=== PATIENT | male | born 1970 | race African-American/Black ===

== ENCOUNTER 2019-07-11 23:58 | Emergency (ER) | payer OTHER ==
[~2019-07-11] VITALS: Ht 190.5 cm; Wt 112.5 kg
[2019-07-12 00:10] VITALS: BP 147/84
--- NOTE | 2019-07-12 00:10 | NUR ---
ED Nurse Note: Pt Walked into the ED from home c/o sharp chest pain. Patient reports history of HTN and on Metoprolol for 30 days. Patient states that shap chest pain started about 20 minutes ago while watching comedy movie. AOx4, denies SOB and denies chest pain at arrival; however, still discomfort rated at an 8/10.
--- NOTE | 2019-07-12 00:18 | NUR ---
ED Nurse Note: IV line established on Right AC 20G by EDRN. EKG is done at the bedside, Blood initial, toroponin, and D dimer collected and sent down to the lab.
--- NOTE | 2019-07-12 00:25 | NUR ---
Note trisatn in EDM - 07/12/19 at 0707 by [email or web address] ED Nurse Note: Droplet precausion was observed.
[2019-07-12 00:30] VITALS: BP 130/88
--- NOTE | 2019-07-12 00:33 | Emergency Room Report ---
History of Present Illness General Chief Complaint: Chest Pain Source: Patient Present Illness HPI Patient is a 48-year-old male presents after increased left-sided chest pain. Had recently been started on metoprolol. Previous history of hypertension. Denies any recent fever. Had reportedly had a negative coronavirus test recently. Denies any vomiting or diarrhea. Denies any abdominal pain. Pain was sharp in nature associated with some lightheadedness. Denies any prior cardiac condition or prior cardiac procedures. Intermittent episodes worse over the past 2 weeks worse with supine position. 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 COVID-19 Screening: Negative COVID-19 COVID-19 Testing Source: SAFETY ADMIN ASSISTANT Patient History Past Medical History: see triage record Reviewed Nursing Documentation: PMH: Agreed; PSxH: Agreed Nursing Documentation-PMH Hx Cardiac Problems: Yes - ultrasound Hx Hypertension: Yes Hx Gastrointestinal Problems: No - appendix removed Review of Systems All Other Systems: negative except mentioned in HPI Physical Exam Vital Signs Date Time Temp Pulse Resp B/P (MAP) Pulse Ox O2 Delivery O2 Flow Rate FiO2 07/12/19 00:00 98.1 70 17 93 Room Air Sp02 EP Interpretation: reviewed, normal General Appearance: normal inspection, well appearing, no apparent distress, alert, GCS 15 Head: atraumatic ENT: normal ENT inspection, hearing grossly normal, normal voice Neck: normal inspection, full range of motion, supple, no bony tend Respiratory: normal inspection, lungs clear, normal breath sounds, no respiratory distress, no retraction, no wheezing Cardiovascular #1: regular rate, rhythm, no edema Gastrointestinal: normal inspection, normal bowel sounds, non tender, soft, no guarding, no hernia Genitourinary: no CVA tenderness Musculoskeletal: normal inspection, back normal, normal range of motion Neurologic: alert, responsive, speech normal, normal inspection Psychiatric: normal inspection, judgement/insight normal, mood/affect normal Medical Decision Making Diagnostic Impression: Primary Impression: Chest pain Additional Impressions: Splenic calcification Lymphadenopathy, hilar ER Course Patient presented for chest pain. Differential diagnosis include was not limited to coronavirus infection, pneumonia, bronchitis, acute coronary syndrome among others. Because of complexity of patient's case laboratory tests and imaging studies were ordered. Chest x-ray 1 view interpreted by me showed normal cardiac size without any definite infiltrate with radiopaque foreign body present. Cardiac size is normal. There is normal mediastinum. Trachea is midline. EKG interpreted by me showed normal sinus rhythm with a rate of [address] or T wave changes. Repeat EKG did not show any evidence of acute changes.Patient was advised of CT findings. Patient was offered admission which he declined. He was advised to follow-up for further cardiac evaluation with his primary care physician. He was advised to return if worse. The patient is advised to follow up with primary care doctor in 1- 2 days. Patient is advised to return if any worsening condition or if any changes in status that are concerning. This report is dictated with [employer] c engineer software which may occasionally lead to discrepancies related to use of this software. Labs Test 07/12/19 00:18 07/12/19 01:23 White Blood Count 8.2 K/UL (4.8-10.8) Red Blood Count 4.75 M/UL (4.70-6.10) Hemoglobin 14.0 G/DL (14.2-18.0) Hematocrit 39.8 % (42.0-52.0) Mean Corpuscular Volume 84 FL (80-99) Mean Corpuscular Hemoglobin 29.4 PG (27.0-31.0) Mean Corpuscular Hemoglobin Concent 35.1 G/DL (32.0-36.0) Red Cell Distribution Width 12.3 % (11.6-14.8) Platelet Count 224 K/UL (150-450) Mean Platelet Volume 6.2 FL (6.5-10.1) Neutrophils (%) (Auto) 70.9 % (45.0-75.0) Lymphocytes (%) (Auto) 17.4 % (20.0-45.0) Monocytes (%) (Auto) 8.3 % (1.0-10.0) Eosinophils (%) (Auto) 1.8 % (0.0-3.0) Basophils (%) (Auto) 1.6 % (0.0-2.0) D-Dimer 0.72 mg/L FEU (0.00-0.49) Sodium Level 144 MMOL/L (136-145) Potassium Level 3.7 MMOL/L (3.5-5.1) Chloride Level 105 MMOL/L (98-107) Carbon Dioxide Level 30 MMOL/L (21-32) Anion Gap 9 mmol/L (5-15) Blood Urea Nitrogen 17 mg/dL (7-18) Creatinine 1.3 MG/DL (0.55-1.30) Estimat Glomerular Filtration Rate > 60 mL/min (>60) Glucose Level 104 MG/DL (74-106) Calcium Level 9.2 MG/DL (8.5-10.1) Total Bilirubin 0.3 MG/DL (0.2-1.0) Aspartate Amino Transf (AST/SGOT) 36 U/L (15-37) Alanine Aminotransferase (ALT/SGPT) 96 U/L (12-78) Alkaline Phosphatase 91 U/L (46-116) Total Creatine Kinase 365 U/L (26-308) Troponin I 0.004 ng/mL (0.000-0.056) Pro-B-Type Natriuretic Peptide 48 pg/mL (0-125) Total Protein 7.7 G/DL (6.4-8.2) Albumin 3.8 G/DL (3.4-5.0) Globulin 3.9 g/dL Albumin/Globulin Ratio 1.0 (1.0-2.7) Lipase 250 U/L (73-393) Urine Color Pale yellow Urine Appearance Clear Urine pH 6.5 (4.5-8.0) Urine Specific [place] 1.015 (1.005-1.035) Urine Protein Negative (NEGATIVE) Urine Glucose (UA) Negative (NEGATIVE) Urine Ketones Negative (NEGATIVE) Urine Blood Negative (NEGATIVE) Urine Nitrite Negative (NEGATIVE) Urine Bilirubin Negative (NEGATIVE) Urine Urobilinogen 1 MG/DL (0.0-1.0) Urine Leukocyte Esterase Negative (NEGATIVE) EKG Diagnostic Results Rate: normal Rhythm: NSR ST Segments: no acute changes Last Vital Signs Date Time Temp Pulse Resp B/P (MAP) Pulse Ox O2 Delivery O2 Flow Rate FiO2 07/12/19 00:00 98.1 70 17 93 Room Air Status: improved Disposition: PLACE IN OBSERVATION Condition: Stable Scripts Aspirin* (ASPIR 81*) 81 Mg Tablet. 81 MG ORAL DAILY, #60 TAB Prov: Paulino Rendon MD 07/12/19 Omeprazole Magnesium (PRILOSEC OTC) 20 Mg Tablet. 20 MG ORAL DAILY, #30 TAB Prov: Paulino Rendon MD 07/12/19 Paulino Rendon MD July 12, 2019 00:33
[2019-07-12 00:37] LABS: BASOPHILS % (AUTO) 1.6 % (0.0-2.0); EOSINOPHILS % (AUTO) 1.8 % (0.0-3.0); HEMATOCRIT 39.8 % (42.0-52.0); LYMPHOCYTES % (AUTO) 17.4 % (20.0-45.0); MEAN CORPUSCULAR VOLUME 84 FL (80-99); MONOCYTES % (AUTO) 8.3 % (1.0-10.0); NEUTROPHILS % (AUTO) 70.9 % (45.0-75.0); PLATELET COUNT 224 K/UL (150-450); RED BLOOD COUNT 4.75 M/UL (4.70-6.10); RED CELL DISTRIBUTION WIDTH 12.3 % (11.6-14.8); WHITE BLOOD COUNT 8.2 K/UL (4.8-10.8)
[2019-07-12 00:42] LABS: ANION GAP 9 mmol/L (5-15); BLOOD UREA NITROGEN 17 mg/dL (7-18); CALCIUM 9.2 MG/DL (8.5-10.1); CARBON DIOXIDE 30 MMOL/L (21-32); CHLORIDE 105 MMOL/L (98-107); CREATININE 1.3 MG/DL (0.55-1.30); POTASSIUM 3.7 MMOL/L (3.5-5.1); SODIUM 144 MMOL/L (136-145)
[2019-07-12 00:53] LABS: ALANINE AMINOTRANSFERASE 96 U/L (12-78); ALBUMIN 3.8 G/DL (3.4-5.0); ALKALINE PHOSPHATASE 91 U/L (46-116); ASPARTATE AMINO TRANSFERASE 36 U/L (15-37); BILIRUBIN,TOTAL 0.3 MG/DL (0.2-1.0); CREATINE KINASE 365 U/L (26-308)
[2019-07-12 01:00] VITALS: BP 135/99
--- NOTE | 2019-07-12 01:23 | NUR ---
ED Nurse Note: Urine sample sent down to lab.
[2019-07-12 01:30] LABS: APPEARANCE,URINE CLEAR; BILIRUBIN, URINE NEGATIVE (NEGATIVE); COLOR,URINE PALE YELLOW; GLUCOSE, URINE (UA) NEGATIVE (NEGATIVE); KETONES,URINE NEGATIVE (NEGATIVE); LEUKOCYTE ESTERASE ,URINE NEGATIVE (NEGATIVE); NITRITE,URINE NEGATIVE (NEGATIVE); PH,URINE 6.5 (4.5-8.0); PROTEIN,URINE NEGATIVE (NEGATIVE); UROBILINOGEN,URINE 1 MG/DL (0.0-1.0)
[2019-07-12] MEDS ORDERED: Omnipaque 350 100ml vial INJ PRN (01:45)
[2019-07-12 02:30] VITALS: BP 131/77
--- NOTE | 2019-07-12 03:57 | Diagnostic Imaging Report ---
EXAM: CT Angiography Chest With Intravenous Contrast CLINICAL HISTORY: CP TECHNIQUE: Axial computed tomographic angiography images of the chest with intravenous contrast using pulmonary embolism protocol. CTDI is 111 mGy and DLP is 407 mGy-cm. One or more of the following dose reduction techniques were used: automated exposure control, adjustment of the mA and/or kV according to patient size, use of iterative reconstruction technique. MIP reconstructed images were created and reviewed. Coronal and sagittal reformatted images were created and reviewed. COMPARISON: No relevant prior studies available. FINDINGS: Pulmonary arteries: No evidence of pulmonary embolism. Aorta: No evidence of thoracic aortic dissection. Lungs: Unremarkable. No mass. No consolidation. Pleural space: Unremarkable. No significant effusion. No pneumothorax. Heart: Unremarkable. No cardiomegaly. No significant pericardial effusion. No evidence of RV dysfunction. Bones/joints: There are degenerative changes of the lower thoracic spine. No acute fracture. No dislocation. Soft tissues: Multiple metallic density foreign bodies are seen in the right posterior paraspinous muscular soft tissue. Lymph nodes: There are calcified lymph nodes in the subcarinal region. Spleen: Multiple punctate splenic calcifications are present. Kidneys and ureters: Nonobstructing 2 mm right renal calculus. IMPRESSION: 1. No evidence of pulmonary embolism. No evidence of thoracic aortic dissection. No other acute chest pathology. 2. Nonobstructing 2 mm right renal calculus.
[2019-07-12 04:00] VITALS: BP 139/97
[2019-07-12] MEDS ORDERED: PRILOSEC OTC20 MG ORAL (04:35)
[2019-07-12] MEDS ORDERED: ASPIR 8181 MG ORAL (04:35)
[2019-07-12 04:40] VITALS: BP 139/97
--- NOTE | 2019-07-12 04:40 | NUR ---
ER DISCHARGE NOTE: Patient is cleared to be discharged per ERMD, pt is aox4, on room air, with stable vital signs. pt was given dc and prescription instructions, pt was able to verbalize understanding, pt id band and iv site removed without complications. pt is able to ambulate with steady gait. pt took all belongings.
--- NOTE | 2019-07-12 16:30 | Diagnostic Imaging Report ---
Procedure: XRAY Chest 1v Reason for study: Reason For Exam: SOB Comparison films: None. FINDINGS: Metallic shrapnel artifact noted over the right chest. Vascularity is normal. The lung vo are clear bilaterally. Cardiac and mediastinal silhouette are within normal limits. CP angles are sharp. The bony thorax appear unremarkable. IMPRESSION: No acute alveolar disease. Metallic shrapnel artifacts noted over the right chest.
== END 2019-07-12 04:40 | disposition home or self-care (01) ==
LOC: EMR 07-12 00:37
DX: R07.9 Chest pain, unspecified (principal); I10 Essential (primary) hypertension; Z90.89 Acquired absence of other organs
CPT/HCPCS: 36415; 71045; 71275; 80053; 81003; 82550; 83690; 83880; 84484; 85025; 85379; 93005; 99284; Q9967

== ENCOUNTER 2019-11-19 00:03 | Emergency (ER) | payer OTHER ==
[~2019-11-19] VITALS: Ht 190.5 cm; Wt 113.4 kg
[~2019-11-19 00:03] MED LIST: ASPIR 8181 MG ORAL; PRILOSEC OTC20 MG ORAL
[2019-11-19 00:10] VITALS: BP 144/93
--- NOTE | 2019-11-19 00:10 | NUR ---
ED Nurse Note: walked in to ed c/o left sided cp nonradiating onset 1999 last night. denies nvd or sob. vss, nad, aaox4, ambulatory, on desk monitor, ermd at bedside, ekg done at bedside
--- NOTE | 2019-11-19 00:15 | NUR ---
ED Nurse Note: blood collected and sent to lab
--- NOTE | 2019-11-19 00:42 | Emergency Room Report ---
History of Present Illness General Chief Complaint: Chest Pain Source: Patient, Medical Record Present Illness HPI Is a 49-year-old male with history hypertension. He presents with complaint of chest pain. Onset around 8 PM. He said he was driving and felt tightness in his left chest area. He said he became shaky. He talked with his neighbor who calmed him down. He did not take his blood pressure medication so he took it. He actually drove here and waited in the parking lot. He got better after he went home. He woke up with some cramping pain in the left chest area so he was concerned and drove here. He has no pain now. No palpitation. No fever chi lls. He has been having this problem for a while now. He had a negative stress test a month ago. He denies anxiety. No fever chills but no nausea no vomiting. No radiation. No exertional component. Lasting for a few seconds. 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 Patient History Past Medical History: see triage record, old chart reviewed, HTN Past Surgical History: none Pertinent Family History: none Social History: Denies: smoking Immunizations: other Reviewed Nursing Documentation: PMH: Agreed; PSxH: Agreed Nursing Documentation-PMH Hx Cardiac Problems: Yes Hx Hypertension: Yes Hx Gastrointestinal Problems: No - appendix removed Review of Systems Eye: Denies: eye pain, blurred vision ENT: Denies: ear pain, nose congestion, throat swelling Respiratory: Denies: cough, shortness of breath Cardiovascular: Reports: chest pain; Denies: palpitations Gastrointestinal: Denies: abdominal pain, diarrhea, nausea, vomiting Musculoskeletal: Denies: back pain, joint pain Skin: Denies: rash Neurological: Denies: headache, numbness Endocrine: Denies: increased thirst, increased urine Hematologic/Lymphatic: Denies: easy bruising All Other Systems: negative except mentioned in HPI Physical Exam Vital Signs Date Time Temp Pulse Resp B/P (MAP) Pulse Ox O2 Delivery O2 Flow Rate FiO2 11/19/19 00:08 97.7 61 20 146/96 (113) 99 Room Air Vitals with high blood pressure Sp02 EP Interpretation: reviewed, normal General Appearance: well appearing, no apparent distress, alert Head: normocephalic, atraumatic Eyes: bilateral eye PERRL, bilateral eye EOMI ENT: hearing grossly normal, normal pharynx Neck: full range of motion, supple, no meningismus Respiratory: chest non-tender, lungs clear, normal breath sounds Cardiovascular #1: regular rate, rhythm, no murmur Gastrointestinal: normal bowel sounds, non tender, no mass, no organomegaly, no bruit, non-distended Musculoskeletal: back normal, normal range of motion, gait/station normal Psychiatric: mood/affect normal Medical Decision Making Diagnostic Impression: Primary Impression: Chest pain Qualified Codes: R07.9 - Chest pain, unspecified ER Course Patient with atypical chest pain. May be more GI related with anxiety. Unlikely to be ACS for CAD. He had a negative stress test this a month ago. Troponin negative. EKG normal. Will discharge home with reassurance. EKG Diagnostic Results Rate: normal, bradycardiac Rhythm: NSR ST Segments: no acute changes Rhythm Strip Diag. Results EP Interpretation: yes Rate: 58 Rhythm: NSR, no PVC's, no ectopy Last Vital Signs Date Time Temp Pulse Resp B/P (MAP) Pulse Ox O2 Delivery O2 Flow Rate FiO2 11/19/19 00:08 97.7 61 20 146/96 (113) 99 Room Air Status: improved Disposition: HOME, SELF-CARE Condition: Stable Scripts Omeprazole (OMEPRAZOLE) 40 Mg Capsule. 40 MG ORAL TWICE A DAY, #30 CAP Prov: Jefe Del Castillo MD 11/19/19 Referrals: NON PHYSICIAN (PCP) Patient Instructions: Nonspecific Chest Pain Additional Instructions: Follow-up with your doctor in 7 days. If continue with pain, you may need referral to see client technical specialist. If cardiac origin has been ruled out, you may need a referral to see a GI doctor. Return if symptoms worsen. Jefe Del Castillo MD Nov 19, 2019 00:42
[2019-11-19] MEDS ORDERED: Pantoprazole Inj IVP ONE (00:45)
[2019-11-19 00:56] LABS: BASOPHILS % (AUTO) 2.6 % (0.0-2.0); EOSINOPHILS % (AUTO) 1.4 % (0.0-3.0); HEMATOCRIT 39.6 % (42.0-52.0); HEMOGLOBIN 13.7 G/DL (14.2-18.0); LYMPHOCYTES % (AUTO) 14.1 % (20.0-45.0); MEAN CORPUSCULAR VOLUME 84 FL (80-99); MONOCYTES % (AUTO) 9.2 % (1.0-10.0); NEUTROPHILS % (AUTO) 72.7 % (45.0-75.0); PLATELET COUNT 221 K/UL (150-450); RED BLOOD COUNT 4.69 M/UL (4.70-6.10); RED CELL DISTRIBUTION WIDTH 12.6 % (11.6-14.8); WHITE BLOOD COUNT 7.8 K/UL (4.8-10.8)
[2019-11-19 01:04] LABS: ANION GAP 9 mmol/L (5-15); BLOOD UREA NITROGEN 15 mg/dL (7-18); CALCIUM 9.1 MG/DL (8.5-10.1); CARBON DIOXIDE 29 MMOL/L (21-32); CHLORIDE 103 MMOL/L (98-107); CREATININE 1.1 MG/DL (0.55-1.30); POTASSIUM 3.9 MMOL/L (3.5-5.1); SODIUM 141 MMOL/L (136-145)
[2019-11-19] MEDS ORDERED: OMEPRAZOLE40 M1 ORAL (01:33)
[2019-11-19 01:40] VITALS: BP 135/88
--- NOTE | 2019-11-19 17:40 | Cardiology Report ---
APPROVED REPORT EKG Measurement Heart [id number] <Conclusion> Sinus bradycardia Otherwise normal ECG
== END 2019-11-19 01:40 | disposition home or self-care (01) ==
LOC: EMR 00:30
DX: R07.9 Chest pain, unspecified (principal); I10 Essential (primary) hypertension; Z90.89 Acquired absence of other organs; R00.1 Bradycardia, unspecified
CPT/HCPCS: 36415; 80048; 84484; 85025; 93005; 96374; 99284; C9113

== ENCOUNTER 2019-12-07 00:01 | Emergency (ER) | payer OTHER ==
[~2019-12-07] VITALS: Ht 190.5 cm; Wt 115.7 kg
[~2019-12-07 00:01] MED LIST changes: +OMEPRAZOLE40 M1 ORAL
[2019-12-07 00:20] VITALS: BP 147/87
--- NOTE | 2019-12-07 00:20 | NUR ---
ED Nurse Note: Pt ambulated into ed from home with son CO s/p low blood pressure and s/p low blood sugar with lightheadedness and dizziness. Pt states hx of HTN and denies PMH of diabetes. Pt aao x 4, ambulates with steady gait. Pt placed in gown and on quad stayer. Awaiting ERMD at bedside. Awaiting further orders.
--- NOTE | 2019-12-07 00:33 | NUR ---
ED Nurse Note: ERMD at bedside
--- NOTE | 2019-12-07 00:41 | NUR ---
ED Nurse Note: pt states he is unable to provide UA at this time. Pt states he may be able to provide sample at a later time. Will continue to monitor.
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
[2019-12-07 01:23] LABS: ANION GAP 5 mmol/L (5-15); BLOOD UREA NITROGEN 14 mg/dL (7-18); CALCIUM 8.8 MG/DL (8.5-10.1); CARBON DIOXIDE 29 MMOL/L (21-32); CHLORIDE 102 MMOL/L (98-107); CREATININE 1.3 MG/DL (0.55-1.30); POTASSIUM 3.5 MMOL/L (3.5-5.1); SODIUM 136 MMOL/L (136-145)
[2019-12-07 01:27] LABS: BASOPHILS % (AUTO) 2.6 % (0.0-2.0); EOSINOPHILS % (AUTO) 2.1 % (0.0-3.0); HEMATOCRIT 41.2 % (42.0-52.0); HEMOGLOBIN 14.3 G/DL (14.2-18.0); LYMPHOCYTES % (AUTO) 18.1 % (20.0-45.0); MEAN CORPUSCULAR VOLUME 84 FL (80-99); MONOCYTES % (AUTO) 9.8 % (1.0-10.0); NEUTROPHILS % (AUTO) 67.4 % (45.0-75.0); PLATELET COUNT 223 K/UL (150-450); RED BLOOD COUNT 4.92 M/UL (4.70-6.10); RED CELL DISTRIBUTION WIDTH 12.8 % (11.6-14.8); WHITE BLOOD COUNT 7.7 K/UL (4.8-10.8)
[2019-12-07 01:34] LABS: ALANINE AMINOTRANSFERASE 59 U/L (12-78); ALBUMIN 3.7 G/DL (3.4-5.0); ALBUMIN/GLOBULIN RATIO 1.1 (1.0-2.7); ALKALINE PHOSPHATASE 87 U/L (46-116); ASPARTATE AMINO TRANSFERASE 25 U/L (15-37); BILIRUBIN,TOTAL 0.3 MG/DL (0.2-1.0); CREATINE KINASE 328 U/L (26-308)
--- NOTE | 2019-12-07 01:42 | NUR ---
ED Nurse Note: UA sent to lab
[2019-12-07 01:57] LABS: APPEARANCE,URINE CLEAR; BILIRUBIN, URINE NEGATIVE (NEGATIVE); GLUCOSE, URINE (UA) NEGATIVE (NEGATIVE); KETONES,URINE 1+ (NEGATIVE); LEUKOCYTE ESTERASE ,URINE 1+ (NEGATIVE); NITRITE,URINE NEGATIVE (NEGATIVE); PH,URINE 5 (4.5-8.0); PROTEIN,URINE NEGATIVE (NEGATIVE); UROBILINOGEN,URINE NORMAL MG/DL (0.0-1.0)
[2019-12-07 01:58] LABS: COLOR,URINE YELLOW
[2019-12-07 02:04] VITALS: BP 136/90
--- NOTE | 2019-12-07 03:11 | NUR ---
ED Nurse Note: ERMD at bedside
[2019-12-07] MEDS ORDERED: FAMOTIDINE20 MG ORAL (03:20)
[2019-12-07] MEDS ORDERED: ONDANSETRON ODT4 MG BC (03:20)
[2019-12-07] MEDS ORDERED: VITAMIN D250 MCG PO (03:27)
[2019-12-07] MEDS ORDERED: FLOMAX0.4 MG ORAL (03:27)
[2019-12-07] MEDS ORDERED: DIOVAN HCT 1601 EACH ORAL (03:27)
[2019-12-07] MEDS ORDERED: SILDENAFIL20 MG ORAL (03:27)
[2019-12-07] MEDS ORDERED: METOPROLOL SUC100 MG ORAL (03:27)
[2019-12-07] MEDS ORDERED: AVODART0.5 MG ORAL (03:27)
[2019-12-07 03:34] VITALS: BP 135/92
--- NOTE | 2019-12-07 03:34 | NUR ---
ER DISCHARGE NOTE: Patient is cleared to be discharged HOME per ERMD, pt is aox4, 99% on room air, with stable vital signs. pt was given dc and prescription instructions, pt was able to verbalize understanding, pt id band and iv site removed without complications. pt is able to ambulate with steady gait. pt took all belongings.
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
== END 2019-12-07 03:34 | disposition home or self-care (01) ==
LOC: EMR 00:40
DX: R11.0 Nausea (principal); R53.1 Weakness; R82.4 Acetonuria; I10 Essential (primary) hypertension; Z90.89 Acquired absence of other organs; I51.7 Cardiomegaly; M85.80 Other specified disorders of bone density and structure, unspecified site
CPT/HCPCS: 36415; 71045; 80053; 81003; 82550; 83735; 83880; 84484; 85025; 85610; 85730; 93005; 99284; U0002

== ENCOUNTER 2020-01-07 08:09 | Emergency (ER) | payer OTHER ==
[~2020-01-07] VITALS: Ht 190.5 cm; Wt 113.4 kg
[~2020-01-07 08:09] MED LIST changes: +AVODART0.5 MG ORAL; +DIOVAN HCT 1601 EACH ORAL; +FAMOTIDINE20 MG ORAL; +FLOMAX0.4 MG ORAL; +METOPROLOL SUC100 MG ORAL; +ONDANSETRON ODT4 MG BC; +SILDENAFIL20 MG ORAL; +VITAMIN D250 MCG PO
[2020-01-07 08:43] VITALS: BP 136/95
[2020-01-07] MEDS ORDERED: BENAZEPRIL-HCT1 EACH ORAL (08:44)
[2020-01-07 08:59] LABS: BASOPHILS % (AUTO) 2.1 % (0.0-2.0); EOSINOPHILS % (AUTO) 2.1 % (0.0-3.0); HEMATOCRIT 43.1 % (42.0-52.0); HEMOGLOBIN 14.2 G/DL (14.2-18.0); LYMPHOCYTES % (AUTO) 14.1 % (20.0-45.0); MEAN CORPUSCULAR VOLUME 91 FL (80-99); MONOCYTES % (AUTO) 10.9 % (1.0-10.0); NEUTROPHILS % (AUTO) 70.8 % (45.0-75.0); PLATELET COUNT 182 K/UL (150-450); RED BLOOD COUNT 4.73 M/UL (4.70-6.10); RED CELL DISTRIBUTION WIDTH 13.3 % (11.6-14.8); WHITE BLOOD COUNT 5.2 K/UL (4.8-10.8)
[2020-01-07 09:00] LABS: ANION GAP 6 mmol/L (5-15); BLOOD UREA NITROGEN 11 mg/dL (7-18); CALCIUM 8.8 MG/DL (8.5-10.1); CARBON DIOXIDE 29 MMOL/L (21-32); CHLORIDE 105 MMOL/L (98-107); CREATININE 1.1 MG/DL (0.55-1.30); POTASSIUM 3.7 MMOL/L (3.5-5.1); SODIUM 140 MMOL/L (136-145)
[2020-01-07 09:11] LABS: ALANINE AMINOTRANSFERASE 77 U/L (12-78); ALBUMIN 3.8 G/DL (3.4-5.0); ALBUMIN/GLOBULIN RATIO 0.9 (1.0-2.7); ALKALINE PHOSPHATASE 86 U/L (46-116); ASPARTATE AMINO TRANSFERASE 30 U/L (15-37); BILIRUBIN,TOTAL 0.5 MG/DL (0.2-1.0)
[2020-01-07 09:58] VITALS: BP 148/91
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
--- NOTE | 2020-01-08 14:40 | Cardiology Report ---
APPROVED REPORT EKG Measurement Heart [id number] <Conclusion> Normal sinus rhythm Normal ECG
== END 2020-01-07 09:58 | disposition home or self-care (01) ==
LOC: EMR 08:50
DX: R00.2 Palpitations (principal); R07.9 Chest pain, unspecified; I10 Essential (primary) hypertension; K21.9 Gastro-esophageal reflux disease without esophagitis
CPT/HCPCS: 36415; 71045; 80053; 82962; 84484; 85025; 93005; 99283